=== PATIENT | male | born 1965 | race Caucasian/White ===

== ENCOUNTER 2020-05-29 09:38 | Outpatient (CLI) | payer SELFPAY | END 2020-05-29 23:59 | disposition home or self-care (01) | LOC: LAB 09:38 | PROVIDERS: ATTEND Internal Medicine Hematology & Oncology | DX: D46.9 Myelodysplastic syndrome, unspecified (principal) | CPT/HCPCS: 36415 ==

== ENCOUNTER 2022-01-02 00:43 | Inpatient (IN) | payer OTHER, BC ==
[~2022-01-02] VITALS: Ht 180.3 cm; Wt 90.9 kg
--- NOTE | 2022-01-02 01:08 | NUR ---
blood sent to the lab
--- NOTE | 2022-01-02 01:08 | NUR ---
ekg is being performed
--- NOTE | 2022-01-02 01:09 | NUR ---
patient also given a urinal awaitng urine sample
[2022-01-02 01:14] LABS: BASOPHILS # (AUTO) 0.1 X10'3 (0-0.2); BASOPHILS % (AUTO) 0.7 % (0-1); EOSINOPHILS % (AUTO) 0.3 % (0-6); HEMOGLOBIN 14.2 g/dl (14.0-17.9); LYMPHOCYTES # (AUTO) 1.3 X10'3 (1.1-4.8); LYMPHOCYTES % (AUTO) 11.1 % (21-51); MEAN CORPUSCULAR HEMOGLOBIN 31.4 PG (27.0-31.0); MEAN CORPUSCULAR HGB CONC 34.6 g/dL (33.0-36.5); MEAN CORPUSCULAR VOLUME 90.6 FL (78-98); MEAN PLATELET VOLUME 7.5 FL (7.4-10.4); MONOCYTES # (AUTO) 0.6 X10'3 (0-0.9); MONOCYTES % (AUTO) 5.5 % (2-12); NEUTROPHILS # (AUTO) 9.7 X10'3 (1.8-7.7); NEUTROPHILS % (AUTO) 82.4 % (42-75); PLATELET COUNT 293 X10'3 (140-440); RED BLOOD COUNT 4.52 X10'6 (4.70-6.10); RED CELL DISTRIBUTION WIDTH 13.4 % (11.5-14.5); WHITE BLOOD COUNT 11.7 X10'3 (4.5-11.0)
[2022-01-02] MEDS ORDERED: ondansetron/PF 4mg/2ml inj IV ONE (01:15)
[2022-01-02] MEDS ORDERED: acetaminophen 325mg tablet PO ONE (01:15)
[2022-01-02] MEDS ORDERED: LIDOcaine 5% patch TP ONE (01:15)
[2022-01-02] MEDS ORDERED: normal saline 1000ml 1,000 ML IV ONE ×2 (01:15→01:45)
[2022-01-02] MEDS ORDERED: ketorolac trometh. 30mg/ml inj. IV ONE (01:15)
[2022-01-02 01:37] LABS: ALANINE AMINOTRANSFERASE 51 U/L (12-78); ALBUMIN 3.8 G/DL (3.4-5.0); ALBUMIN/GLOBULIN RATIO 0.9 (1.1-1.5); ALKALINE PHOSPHATASE 301 IU/L (46-116); ANION GAP 10 (8-16); ASPARTATE AMINO TRANSFERASE 98 U/L (10-37); BLOOD UREA NITROGEN 33 MG/DL (7-18); BUN/CREATININE RATIO 29.7 (5.4-32.0); CHLORIDE 96 MMOL/L (99-107); CREATININE 1.11 MG/DL (0.60-1.10); LIPASE 61 U/L (73-393); POTASSIUM 4.4 MMOL/L (3.5-5.1); SODIUM 137 MMOL/L (135-145); TOTAL CARBON DIOXIDE 30.6 MMOL/L (24-32); TOTAL PROTEIN 8.2 G/DL (6.4-8.2); eGFR 68 ML/MIN
[2022-01-02 01:43] LABS: CALCIUM 14.3 MG/DL (8.5-10.1); GLUCOSE 500 MG/DL (70-104)
[2022-01-02] MEDS ORDERED: insulin regular, human 10 units/0.1 ml syringe IV ONE (01:45)
[2022-01-02] MEDS ORDERED: iohexol 300mg/ml 100ml inj. ONE ×2 (02:21→10:29)
[2022-01-02 03:03] LABS: CLARITY,URINE CLEAR (Clear); COLOR,URINE YELLOW (Yellow); GLUCOSE, URINE >=1000 mg/dl (Neg); KETONES,URINE TRACE mg/dl (Neg); LEUKOCYTE ESTERASE ,URINE NEGATIVE (Neg); NITRITES, URINE NEGATIVE (Neg); OCCULT BLOOD,URINE NEGATIVE (Neg); PROTEIN,URINE NEGATIVE (Neg); UROBILINOGEN,URINE 0.2 E.U/dL (0.2-1.0)
[2022-01-02 03:05] LABS: UA COLLECTION TYPE CLN CATCH MIDSTREAM
[2022-01-02 03:10] LABS: BACTERIA,URINE NONE SEEN /HPF (Neg); MUCUS STRANDS FEW /LPF (Neg); RBC,URINE 0-2 /HPF (0-2); SQUAMOUS EPITHELIAL CELL,UR NONE SEEN /LPF (FEW); WBC,URINE 0-4 /HPF (0-4)
[2022-01-02] MEDS ORDERED: ondansetron/PF 4mg/2ml inj IV PRN (05:25)
[2022-01-02] MEDS ORDERED: acetaminophen 325mg tablet PO PRN (05:25)
[2022-01-02] MEDS ORDERED: pamidronate disodium inj 90 MG in normal saline 500ml IV soln 500 ML IV ONE (05:30)
[2022-01-02] MEDS ORDERED: morphine 2 MG/ML inj. syringe IV PRN (05:30)
[2022-01-02] MEDS ORDERED: NORMAL SALINE IV ONE (05:32)
[2022-01-02] MEDS ORDERED: PAMIDRONATE DISODIUM IV ONE (05:32)
[2022-01-02] MEDS: normal saline 1000ml 1,000 ML IV SCH ×4 (05:51→20:57)
[2022-01-02] MEDS ORDERED: furosemide 10 MG/1 ML 10ml inj IV SCH (08:00)
[2022-01-02] MEDS ORDERED: HYDROcodone/acetaminophen 5mg/325mg tablet PO PRN (08:55)
[2022-01-02] MEDS ORDERED: NO HOME MEDS (11:14)
[2022-01-02] MEDS ORDERED: gelatin sponge, absorbable (Gelfoam 12-7MM) sponge TP ONE (14:29)
[2022-01-02 14:50] VITALS: BP 145/92
[2022-01-02 14:57] VITALS: BP 130/74
[2022-01-02 16:00] VITALS: BP 136/85
[2022-01-02] MEDS ORDERED: dextrose 50%-water 50ml dispensing syringe IV PRN ×2 (18:20)
[2022-01-02] MEDS ORDERED: DEXTROSE 15 GM of carb/4 tabs (each vial/BOTTLE has 4 tablets) PO PRN ×2 (18:20)
[2022-01-02] MEDS ORDERED: glucagon, human recombinant 1mg kit SUBCUT PRN (18:20)
[2022-01-02] MEDS ORDERED: MESSAGE TO PHARMACY PO ONE (18:20)
[2022-01-02 20:00] VITALS: BP 146/79
[2022-01-02] MEDS: insulin Lispro (HumaLOG) vial - multi-dose SQ SCH ×2 (20:01→21:45)
--- NOTE | 2022-01-02 20:05 | NUR ---
Spoke with Annemarie Salinas RN patient will be a level 2 and we will cover insulin for nutrition and then recheck at 2100.
[2022-01-02] MEDS ORDERED: insulin glargine (Lantus) pen - multi-dose SQ SCH (21:00)
[2022-01-03] VITALS: BP 140/81
[2022-01-03] MEDS: normal saline 1000ml 1,000 ML IV SCH ×3 (02:12→08:13)
[2022-01-03 06:34] LABS: BASOPHILS % (AUTO) 0.6 % (0-1); EOSINOPHILS # (AUTO) 0.1 X10'3 (0-0.9); HEMATOCRIT 36.8 % (42.0-52.0); HEMOGLOBIN 12.8 g/dl (14.0-17.9); LYMPHOCYTES # (AUTO) 0.4 X10'3 (1.1-4.8); LYMPHOCYTES % (AUTO) 7.3 % (21-51); MEAN CORPUSCULAR HEMOGLOBIN 31.3 PG (27.0-31.0); MEAN CORPUSCULAR HGB CONC 34.8 g/dL (33.0-36.5); MEAN PLATELET VOLUME 7.4 FL (7.4-10.4); MONOCYTES # (AUTO) 0.1 X10'3 (0-0.9); MONOCYTES % (AUTO) 2.4 % (2-12); NEUTROPHILS # (AUTO) 5.3 X10'3 (1.8-7.7); NEUTROPHILS % (AUTO) 88.7 % (42-75); PLATELET COUNT 200 X10'3 (140-440); RED BLOOD COUNT 4.09 X10'6 (4.70-6.10); RED CELL DISTRIBUTION WIDTH 13.5 % (11.5-14.5); WHITE BLOOD COUNT 5.9 X10'3 (4.5-11.0)
[2022-01-03 07:00] VITALS: BP 148/83
[2022-01-03 07:00] LABS: ALANINE AMINOTRANSFERASE 40 U/L (12-78); ALBUMIN 2.7 G/DL (3.4-5.0); ALBUMIN/GLOBULIN RATIO 0.7 (1.1-1.5); ALKALINE PHOSPHATASE 192 IU/L (46-116); ANION GAP 9 (8-16); ASPARTATE AMINO TRANSFERASE 81 U/L (10-37); BILIRUBIN,TOTAL 0.7 MG/DL (0.1-1.0); BLOOD UREA NITROGEN 14 MG/DL (7-18); BUN/CREATININE RATIO 18.2 (5.4-32.0); CALCIUM 10.9 MG/DL (8.5-10.1); CHLORIDE 107 MMOL/L (99-107); CREATININE 0.77 MG/DL (0.60-1.10); GLUCOSE 169 MG/DL (70-104); POTASSIUM 3.4 MMOL/L (3.5-5.1); SODIUM 145 MMOL/L (135-145); TOTAL CARBON DIOXIDE 28.8 MMOL/L (24-32); TOTAL PROTEIN 6.6 G/DL (6.4-8.2); eGFR > 90 ML/MIN
--- NOTE | 2022-01-03 07:25 | NUR ---
Problems reprioritized. Patient report given, questions answered & plan of care reviewed with Elli BERGMAN.
[2022-01-03] MEDS ORDERED: HYDR-3965 PO (09:33)
[2022-01-03] MEDS ORDERED: DOCU-148 PO (09:33)
[2022-01-03] MEDS ORDERED: GLIP1TAB6 PO (10:33)
[2022-01-03 11:20] LABS: HEMOGLOBIN A1C 11.3 % (4.5-6.2)
[2022-01-04 09:54] LABS: CARCINOEMBRYONIC ANTIGEN 2.3 ng/mL (0.0-4.7)
== END 2022-01-03 10:15 | disposition home or self-care (01) | DRG 437 ==
LOC: ER 00:43 → ED HOLD 05:25 → EDBEDREQ 05:44 → SUR 3N 07:51
PROVIDERS: ADMIT Internal Medicine; ATTEND Internal Medicine
PROC: 0FB13ZX Excision of Right Lobe Liver, Percutaneous Approach, Diagnostic (ICD-10-PCS; principal; 2022-01-02)
PROC: BW211ZZ Computerized Tomography (CT Scan) of Abdomen and Pelvis using Low Osmolar Contrast (ICD-10-PCS; 2022-01-02)
DX: C22.9 Malignant neoplasm of liver, not specified as primary or secondary (principal); R63.0 Anorexia; R16.0 Hepatomegaly, not elsewhere classified; E83.52 Hypercalcemia; E11.9 Type 2 diabetes mellitus without complications; Z68.28 Body mass index [BMI] 28.0-28.9, adult
CPT/HCPCS: 36415; 47000; 71045; 71260; 74177; 80053; 81001; 82378; 82948; 83036; 83690; 83880; 84145; 84484; 85025; 85610; 86301; 93005; 99285; G0378; J1815; J1885; J1940; J2270; J2405; J2430; J7030; J7040; Q9967

== ENCOUNTER 2022-01-26 17:18 | Emergency (ER) | payer OTHER, BC ==
[~2022-01-26] VITALS: Ht 180.3 cm; Wt 78.0 kg
[~2022-01-26 17:18] MED LIST: DOCU-148 PO; GLIP1TAB6 PO; HYDR-3965 PO
[2022-01-26 18:50] LABS: ALANINE AMINOTRANSFERASE 38 U/L (12-78); ALBUMIN 3.5 G/DL (3.4-5.0); ALBUMIN/GLOBULIN RATIO 0.8 (1.1-1.5); ALKALINE PHOSPHATASE 265 IU/L (46-116); ANION GAP 11 (8-16); ASPARTATE AMINO TRANSFERASE 112 U/L (10-37); BILIRUBIN,TOTAL 0.6 MG/DL (0.1-1.0); BLOOD UREA NITROGEN 20 MG/DL (7-18); BUN/CREATININE RATIO 22.7 (5.4-32.0); CHLORIDE 104 MMOL/L (99-107); CREATININE 0.88 MG/DL (0.60-1.10); GLUCOSE 103 MG/DL (70-104); POTASSIUM 3.8 MMOL/L (3.5-5.1); SODIUM 141 MMOL/L (135-145); TOTAL PROTEIN 7.7 G/DL (6.4-8.2); eGFR 89 ML/MIN
[2022-01-26 18:58] LABS: CALCIUM 12.7 MG/DL (8.5-10.1)
[2022-01-26 19:43] LABS: BASOPHILS % (AUTO) 0.6 % (0-1); EOSINOPHILS # (AUTO) 0.1 X10'3 (0-0.9); EOSINOPHILS % (AUTO) 0.9 % (0-6); HEMATOCRIT 36.2 % (42.0-52.0); HEMOGLOBIN 12.5 g/dl (14.0-17.9); LYMPHOCYTES # (AUTO) 1.6 X10'3 (1.1-4.8); LYMPHOCYTES % (AUTO) 21.2 % (21-51); MEAN CORPUSCULAR HEMOGLOBIN 30.8 PG (27.0-31.0); MEAN CORPUSCULAR HGB CONC 34.5 g/dL (33.0-36.5); MEAN CORPUSCULAR VOLUME 89.3 FL (78-98); MEAN PLATELET VOLUME 7.4 FL (7.4-10.4); MONOCYTES # (AUTO) 0.5 X10'3 (0-0.9); MONOCYTES % (AUTO) 6.4 % (2-12); NEUTROPHILS # (AUTO) 5.3 X10'3 (1.8-7.7); NEUTROPHILS % (AUTO) 70.9 % (42-75); PLATELET COUNT 292 X10'3 (140-440); RED BLOOD COUNT 4.05 X10'6 (4.70-6.10); RED CELL DISTRIBUTION WIDTH 13.8 % (11.5-14.5); WHITE BLOOD COUNT 7.4 X10'3 (4.5-11.0)
[2022-01-26] MEDS ORDERED: normal saline 1000ml 1,000 ML IV ONE ×2 (20:10→22:25)
[2022-01-26] MEDS ORDERED: pamidronate disodium inj 60 MG in normal saline 500ml IV soln 500 ML IV ONE (21:25)
[2022-01-26] MEDS ORDERED: NORMAL SALINE IV ONE (21:25)
[2022-01-26] MEDS ORDERED: PAMIDRONATE DISODIUM IV ONE (21:25)
[2022-01-27] MEDS ORDERED: furosemide 10 MG/1 ML 10ml inj IV ONE (01:50)
[2022-01-27 02:17] LABS: ALBUMIN 3.1 G/DL (3.4-5.0); BLOOD UREA NITROGEN 16 MG/DL (7-18); CALCIUM 11.5 MG/DL (8.5-10.1); GLUCOSE 160 MG/DL (70-104); eGFR > 90 ML/MIN
[2022-01-27 02:27] VITALS: BP 133/84
[2022-01-27 02:36] LABS: ANION GAP 6 (8-16); CHLORIDE 105 MMOL/L (99-107); POTASSIUM 3.4 MMOL/L (3.5-5.1); SODIUM 135 MMOL/L (135-145); TOTAL CARBON DIOXIDE 23.7 MMOL/L (24-32)
== END 2022-01-27 03:37 | disposition home or self-care (01) ==
LOC: ER 17:19
DX: E83.52 Hypercalcemia (principal); E11.9 Type 2 diabetes mellitus without complications; Z85.05 Personal history of malignant neoplasm of liver; Z79.899 Other long term (current) drug therapy
CPT/HCPCS: 36415; 71045; 80048; 80053; 85025; 93005; 96361; 96365; 96375; 99285; J1940; J2430; J7030; J7040; 96374

== ENCOUNTER 2023-04-25 08:13 | Day surgery (SDC) | payer OTHER, BC ==
[~2023-04-25] VITALS: Ht 180.3 cm; Wt 76.5 kg
[2023-04-25] VITALS (12 sets, daily range): BP systolic 94–124; BP diastolic 59–75
[~2023-04-25 08:13] MED LIST changes: +ASPI-771 PO; +BACI1TAB25; -DOCU-148 PO; +FOLI0.4T6 PO; -HYDR-3965 PO; +MAGN500C17 PO; +METO1TAB12 PO; +ONDA8TAB13 PO; +POLY119P2 PO; +PROC10TA10 PO; +[UNRECOGNIZED DRUG - CODE]; +[UNRECOGNIZED DRUG - CODE] PO
[2023-04-25] MEDS ORDERED: albumin 25% 100mL bottle x 1 IV PRN (08:35)
[2023-04-25] MEDS ORDERED: dextrose 50%-water 50ml dispensing syringe IV ONE ×2 (09:15→11:25)
--- NOTE | 2023-04-25 09:15 | NUR ---
Lakhwinder HESS notified of glucose 42, checked twice. per DESHAWN Warren give D50. Addendum: 04/25/23 at 1730 by Ekta Rae RN pt is alert and oriented, asymptomatic
--- NOTE | 2023-04-25 11:11 | NUR ---
DESHAWN Warren notified glucose 77 per DESHAWN Warren give D50 again, pt has been eating food and drinks, carbohydrates.
== END 2023-04-25 15:05 | disposition home or self-care (01) ==
LOC: SSTAY O 08:13
PROVIDERS: ATTEND Radiology Vascular & Interventional Radiology
DX: R18.8 Other ascites (principal); D70.1 Agranulocytosis secondary to cancer chemotherapy; T45.1X5A Adverse effect of antineoplastic and immunosuppressive drugs, initial encounter; C22.1 Intrahepatic bile duct carcinoma; E83.52 Hypercalcemia; E11.9 Type 2 diabetes mellitus without complications; K74.60 Unspecified cirrhosis of liver; Y92.89 Other specified places as the place of occurrence of the external cause; Z79.84 Long term (current) use of oral hypoglycemic drugs; Z79.899 Other long term (current) drug therapy
CPT/HCPCS: 36415; 49083; 82947; 82948; C1729; J3490; P9047; A6258

== ENCOUNTER 2023-05-08 07:24 | Day surgery (SDC) | payer OTHER, BC ==
[~2023-05-08] VITALS: Ht 180.3 cm; Wt 74.2 kg
[2023-05-08] VITALS (8 sets, daily range): BP systolic 108–132; BP diastolic 54–76; PULSE 60–69; RESP 12–18; TEMP 98.1; O2SAT 98–100
[2023-05-08] MEDS ORDERED: albumin 25% 100mL bottle x 1 IV PRN (07:40)
== END 2023-05-08 11:00 | disposition home or self-care (01) ==
LOC: SSTAY O 07:24
PROVIDERS: ATTEND Radiology Vascular & Interventional Radiology
DX: R18.8 Other ascites (principal); R14.0 Abdominal distension (gaseous); D70.1 Agranulocytosis secondary to cancer chemotherapy; C22.1 Intrahepatic bile duct carcinoma; E83.52 Hypercalcemia; Z79.899 Other long term (current) drug therapy
CPT/HCPCS: 49083; 82948; C1729; J3490; P9047; A6258; A6449

== ENCOUNTER 2023-05-22 07:57 | Day surgery (SDC) | payer OTHER, BC ==
[2023-05-22] VITALS (7 sets, daily range): BP systolic 107–122; BP diastolic 71–85; PULSE 76–104; RESP 15–16; TEMP 98.1; O2SAT 97–99
[~2023-05-22] VITALS: Ht 180.3 cm; Wt 68.5 kg
[~2023-05-22 07:57] MED LIST changes: -GLIP1TAB6 PO; -PROC10TA10 PO; +PROC10TA97 PO
[2023-05-22] MEDS ORDERED: PENI-88 PO (08:15)
[2023-05-22] MEDS ORDERED: PANT40TA54 PO (08:15)
[2023-05-22] MEDS ORDERED: albumin 25% 100mL bottle x 1 IV PRN (08:25)
== END 2023-05-22 11:55 | disposition home or self-care (01) ==
LOC: SSTAY O 07:57
PROVIDERS: ATTEND Radiology Diagnostic Radiology
DX: R18.8 Other ascites (principal); R14.0 Abdominal distension (gaseous); E83.52 Hypercalcemia; K74.60 Unspecified cirrhosis of liver; C22.1 Intrahepatic bile duct carcinoma; D70.1 Agranulocytosis secondary to cancer chemotherapy; T45.1X5A Adverse effect of antineoplastic and immunosuppressive drugs, initial encounter; Z79.899 Other long term (current) drug therapy; Z79.82 Long term (current) use of aspirin; Y92.89 Other specified places as the place of occurrence of the external cause
CPT/HCPCS: 49083; 82948; C1729; J3490; P9047; A6258; A6449

== ENCOUNTER 2023-06-06 07:46 | Day surgery (SDC) | payer OTHER, BC ==
[2023-06-06] VITALS (9 sets, daily range): BP systolic 85–108; BP diastolic 51–73; PULSE 60–75; RESP 12–16; TEMP 97.5; O2SAT 97–100
[~2023-06-06] VITALS: Ht 180.3 cm; Wt 70.5 kg
[~2023-06-06 07:46] MED LIST changes: +PANT40TA54 PO; +PENI-88 PO
[2023-06-06] MEDS: albumin 25% 100mL bottle x 1 IV PRN ×2 (09:12→10:37)
[2023-06-06] MEDS ORDERED: normal saline 1000ml 1,000 ML IV ONE (09:35)
== END 2023-06-06 11:47 | disposition home or self-care (01) ==
LOC: SSTAY O 07:46
PROVIDERS: ATTEND Radiology Vascular & Interventional Radiology
DX: R18.8 Other ascites (principal); R14.0 Abdominal distension (gaseous); D70.1 Agranulocytosis secondary to cancer chemotherapy; C22.1 Intrahepatic bile duct carcinoma; E83.52 Hypercalcemia; K74.60 Unspecified cirrhosis of liver; Z98.890 Other specified postprocedural states; Z79.899 Other long term (current) drug therapy
CPT/HCPCS: 49083; 82948; C1729; J3490; J7030; P9047; A6258

== ENCOUNTER 2023-06-27 07:18 | Day surgery (SDC) | payer OTHER, BC ==
[~2023-06-27] VITALS: Ht 180.3 cm; Wt 76.2 kg
[2023-06-27] VITALS (9 sets, daily range): BP systolic 90–130; BP diastolic 49–70; PULSE 61–71; RESP 12–15; TEMP 99.4; O2SAT 98–99
[~2023-06-27 07:18] MED LIST changes: -PENI-88 PO
[2023-06-27] MEDS: albumin 25% 100mL bottle x 1 IV PRN ×2 (09:42→10:21)
== END 2023-06-27 11:12 | disposition home or self-care (01) ==
LOC: SSTAY O 07:18
PROVIDERS: ATTEND Radiology Vascular & Interventional Radiology
DX: R18.8 Other ascites (principal); R14.0 Abdominal distension (gaseous); D70.1 Agranulocytosis secondary to cancer chemotherapy; T45.1X5A Adverse effect of antineoplastic and immunosuppressive drugs, initial encounter; C22.1 Intrahepatic bile duct carcinoma; E83.52 Hypercalcemia; Z79.82 Long term (current) use of aspirin; Z79.899 Other long term (current) drug therapy; Z98.890 Other specified postprocedural states; Y92.89 Other specified places as the place of occurrence of the external cause
CPT/HCPCS: 49083; C1729; J3490; P9047; A6258; A6449

== ENCOUNTER 2023-07-25 07:16 | Day surgery (SDC) | payer OTHER, BC ==
[~2023-07-25] VITALS: Ht 180.3 cm; Wt 72.1 kg
[2023-07-25] VITALS (8 sets, daily range): BP systolic 98–136; BP diastolic 66–83; PULSE 69–86; RESP 16; TEMP 97.6; O2SAT 92–100
[2023-07-25] MEDS ORDERED: albumin 25% 100mL bottle x 1 IV PRN (07:50)
[2023-07-25] MEDS ORDERED: normal saline 1000ml 1,000 ML IV PRN (07:50)
== END 2023-07-25 10:40 | disposition home or self-care (01) ==
LOC: SSTAY O 07:16
PROVIDERS: ATTEND Radiology Vascular & Interventional Radiology
DX: R18.8 Other ascites (principal); D70.1 Agranulocytosis secondary to cancer chemotherapy; T45.1X5A Adverse effect of antineoplastic and immunosuppressive drugs, initial encounter; C22.1 Intrahepatic bile duct carcinoma; E83.52 Hypercalcemia; Z98.890 Other specified postprocedural states; Z79.899 Other long term (current) drug therapy; Z83.3 Family history of diabetes mellitus; Y92.89 Other specified places as the place of occurrence of the external cause
CPT/HCPCS: 49083; C1729; J3490; J7030; P9047; A6258; A6449

== ENCOUNTER 2023-08-07 06:51 | Day surgery (SDC) | payer OTHER, BC ==
[~2023-08-07] VITALS: Ht 180.3 cm; Wt 71.9 kg
[2023-08-07 07:05] VITALS: BP 111/74; PULSE 71; RESP 15; TEMP 98; O2SAT 15
[2023-08-07] MEDS ORDERED: albumin 25% 100mL bottle x 1 IV PRN (07:15)
[2023-08-07 08:00] VITALS: RESP 15; O2SAT 95
[2023-08-07 08:52] VITALS: BP 110/80; PULSE 62; RESP 15; O2SAT 98
[2023-08-07 09:07] VITALS: BP 107/70; PULSE 67; RESP 16; O2SAT 97
[2023-08-07 09:22] VITALS: BP 101/53; PULSE 70; RESP 14; O2SAT 96
[2023-08-07 09:37] VITALS: BP 109/66; PULSE 74; RESP 15; O2SAT 100
== END 2023-08-07 10:00 | disposition home or self-care (01) ==
LOC: SSTAY O 06:51
PROVIDERS: ATTEND Radiology Diagnostic Radiology
DX: R18.8 Other ascites (principal)
CPT/HCPCS: 49083; C1729; P9047; A6258; A6449

== ENCOUNTER 2023-08-21 06:27 | Day surgery (SDC) | payer OTHER, BC ==
[~2023-08-21] VITALS: Ht 180.3 cm; Wt 70.4 kg
[~2023-08-21 06:27] MED LIST changes: -POLY119P2 PO
[2023-08-21 06:59] VITALS: BP 124/68; PULSE 65; RESP 16; TEMP 98.1; O2SAT 100
[2023-08-21] MEDS ORDERED: albumin 25% 100mL bottle x 1 IV PRN (07:00)
[2023-08-21 09:10] VITALS: BP 107/72; PULSE 73; RESP 15; O2SAT 99
[2023-08-21 09:25] VITALS: BP 103/61; PULSE 67; RESP 16; O2SAT 100
[2023-08-21 09:40] VITALS: BP 102/64; PULSE 71; RESP 15; O2SAT 99
[2023-08-21 09:55] VITALS: BP 98/59; PULSE 72; RESP 16; O2SAT 100
== END 2023-08-21 10:07 | disposition home or self-care (01) ==
LOC: SSTAY O 06:27
PROVIDERS: ATTEND Radiology Vascular & Interventional Radiology
DX: R18.8 Other ascites (principal); R14.0 Abdominal distension (gaseous); D70.1 Agranulocytosis secondary to cancer chemotherapy; T45.1X5A Adverse effect of antineoplastic and immunosuppressive drugs, initial encounter; C22.1 Intrahepatic bile duct carcinoma; E83.52 Hypercalcemia; K74.60 Unspecified cirrhosis of liver; Z79.899 Other long term (current) drug therapy; Z79.82 Long term (current) use of aspirin; Z98.890 Other specified postprocedural states; Z83.3 Family history of diabetes mellitus; Y92.89 Other specified places as the place of occurrence of the external cause
CPT/HCPCS: 49083; C1729; P9047; A6258; A6449

== ENCOUNTER 2023-09-03 08:04 | Day surgery (SDC) | payer OTHER, BC ==
[2023-09-03] VITALS (8 sets, daily range): BP systolic 85–99; BP diastolic 54–67; PULSE 52–62; RESP 12–14; TEMP 97.8; O2SAT 100
[~2023-09-03] VITALS: Ht 180.3 cm; Wt 70.3 kg
[2023-09-03] MEDS ORDERED: albumin 25% 100mL bottle x 1 IV PRN (10:35)
== END 2023-09-03 11:22 | disposition home or self-care (01) ==
LOC: SSTAY O 08:04
PROVIDERS: ATTEND Radiology Vascular & Interventional Radiology
DX: R18.8 Other ascites (principal); R14.0 Abdominal distension (gaseous); D70.1 Agranulocytosis secondary to cancer chemotherapy; T45.1X5A Adverse effect of antineoplastic and immunosuppressive drugs, initial encounter; C22.1 Intrahepatic bile duct carcinoma; E83.52 Hypercalcemia; K74.60 Unspecified cirrhosis of liver; Z79.899 Other long term (current) drug therapy; Z79.82 Long term (current) use of aspirin; Z98.890 Other specified postprocedural states; Z83.3 Family history of diabetes mellitus; Y92.89 Other specified places as the place of occurrence of the external cause
CPT/HCPCS: 49083; C1729; P9047; A6258; A6449

== ENCOUNTER 2023-09-18 08:39 | Day surgery (SDC) | payer OTHER, BC ==
[~2023-09-18] VITALS: Ht 180.3 cm; Wt 71.9 kg
[2023-09-18] VITALS (7 sets, daily range): BP systolic 87–111; BP diastolic 54–82; PULSE 18–65; RESP 16–20; TEMP 97.7; O2SAT 97–100
[2023-09-18] MEDS ORDERED: albumin 25% 100mL bottle x 1 IV PRN (08:55)
== END 2023-09-18 11:05 | disposition home or self-care (01) ==
LOC: SSTAY O 08:39
PROVIDERS: ATTEND Radiology Vascular & Interventional Radiology
DX: R18.8 Other ascites (principal); R14.0 Abdominal distension (gaseous); D70.1 Agranulocytosis secondary to cancer chemotherapy; T45.1X5A Adverse effect of antineoplastic and immunosuppressive drugs, initial encounter; C22.1 Intrahepatic bile duct carcinoma; E83.52 Hypercalcemia; K74.60 Unspecified cirrhosis of liver; Z98.890 Other specified postprocedural states; Z79.899 Other long term (current) drug therapy; Z83.3 Family history of diabetes mellitus; Y92.89 Other specified places as the place of occurrence of the external cause
CPT/HCPCS: 49083; C1729; P9047; A6258; A6449

== ENCOUNTER 2023-10-02 06:50 | Day surgery (SDC) | payer OTHER, BC ==
[~2023-10-02] VITALS: Ht 180.3 cm; Wt 69.3 kg
[2023-10-02] MEDS ORDERED: albumin 25% 100mL bottle x 1 IV PRN (07:05)
[2023-10-02 07:18] VITALS: BP 127/82; PULSE 65; RESP 15; TEMP 97.9; O2SAT 96
[2023-10-02 07:30] VITALS: RESP 15; O2SAT 96
[2023-10-02 08:50] VITALS: BP 125/73; PULSE 64; RESP 15; O2SAT 100
[2023-10-02 09:05] VITALS: BP 118/68; PULSE 57; RESP 14; O2SAT 100
[2023-10-02 09:20] VITALS: BP 111/65; PULSE 56; RESP 16; O2SAT 100
[2023-10-02 09:21] VITALS: BP 107/69; PULSE 66; RESP 14; O2SAT 100
== END 2023-10-02 09:55 | disposition home or self-care (01) ==
LOC: SSTAY O 06:50
PROVIDERS: ATTEND Radiology Vascular & Interventional Radiology
DX: R18.8 Other ascites (principal); R14.0 Abdominal distension (gaseous); D70.1 Agranulocytosis secondary to cancer chemotherapy; T38.6X5A Adverse effect of antigonadotrophins, antiestrogens, antiandrogens, not elsewhere classified, initial encounter; C22.1 Intrahepatic bile duct carcinoma; E83.52 Hypercalcemia; Z98.890 Other specified postprocedural states; Z79.899 Other long term (current) drug therapy; Y92.89 Other specified places as the place of occurrence of the external cause
CPT/HCPCS: 49083; C1729; P9047; A6258; A6449

== ENCOUNTER 2023-10-16 07:54 | Day surgery (SDC) | payer OTHER, BC ==
[~2023-10-16] VITALS: Ht 180.3 cm; Wt 68.0 kg
[2023-10-16] VITALS (7 sets, daily range): BP systolic 94–112; BP diastolic 59–75; PULSE 67–72; RESP 16; TEMP 97.9; O2SAT 99–100
[2023-10-16] MEDS ORDERED: albumin 25% 100mL bottle x 1 IV PRN (08:25)
[2023-10-16] MEDS ORDERED: normal saline 1000ml 1,000 ML IV PRN (08:25)
== END 2023-10-16 15:31 | disposition home or self-care (01) ==
LOC: SSTAY O 07:54
PROVIDERS: ATTEND Radiology Vascular & Interventional Radiology
DX: R18.8 Other ascites (principal); R14.0 Abdominal distension (gaseous); D70.1 Agranulocytosis secondary to cancer chemotherapy; T45.1X5A Adverse effect of antineoplastic and immunosuppressive drugs, initial encounter; C22.1 Intrahepatic bile duct carcinoma; E83.52 Hypercalcemia; Z98.890 Other specified postprocedural states; Z79.899 Other long term (current) drug therapy; Z83.3 Family history of diabetes mellitus; Y92.89 Other specified places as the place of occurrence of the external cause
CPT/HCPCS: 49083; 82948; C1729; P9047; A6258; A6449

== ENCOUNTER 2023-10-30 08:29 | Day surgery (SDC) | payer OTHER, BC ==
[~2023-10-30] VITALS: Ht 180.3 cm; Wt 70.2 kg
[2023-10-30 08:45] VITALS: BP 113/66; PULSE 60; RESP 16; TEMP 98.2; O2SAT 100
[2023-10-30] MEDS ORDERED: albumin 25% 100mL bottle x 1 IV PRN (08:45)
[2023-10-30 09:35] VITALS: BP 99/62; PULSE 66; RESP 16; O2SAT 100
[2023-10-30 09:45] VITALS: BP 99/61; PULSE 60; RESP 16; O2SAT 100
[2023-10-30 09:53] VITALS: BP 99/61; PULSE 60; RESP 16; O2SAT 100
[2023-10-30 10:00] VITALS: BP 99/61; PULSE 58; RESP 16; O2SAT 100
[2023-10-30 10:15] VITALS: BP 100/67; PULSE 62; RESP 16; O2SAT 100
== END 2023-10-30 10:35 | disposition home or self-care (01) ==
LOC: SSTAY O 08:29
PROVIDERS: ATTEND Radiology Vascular & Interventional Radiology
DX: R18.8 Other ascites (principal); R14.0 Abdominal distension (gaseous); E83.52 Hypercalcemia; D70.1 Agranulocytosis secondary to cancer chemotherapy; T45.1X5A Adverse effect of antineoplastic and immunosuppressive drugs, initial encounter; C22.1 Intrahepatic bile duct carcinoma; Z98.890 Other specified postprocedural states; Z79.899 Other long term (current) drug therapy; Y92.89 Other specified places as the place of occurrence of the external cause
CPT/HCPCS: 49083; C1729; A6258; A6449

== ENCOUNTER 2023-11-20 07:22 | Day surgery (SDC) | payer OTHER, MEDICAID ==
[~2023-11-20] VITALS: Ht 180.3 cm; Wt 70.2 kg
[2023-11-20] MEDS ORDERED: albumin 25% 100mL bottle x 1 IV PRN (07:50)
[2023-11-20 08:15] VITALS: BP 95/59; PULSE 63; RESP 16; TEMP 98.4; O2SAT 100
[2023-11-20 08:46] VITALS: BP 184/88; PULSE 101; RESP 16; TEMP 97.4; O2SAT 100
[2023-11-20 09:40] VITALS: BP 134/71; PULSE 69; RESP 16; O2SAT 100
[2023-11-20 09:55] VITALS: BP 96/71; PULSE 62; RESP 16; O2SAT 100
[2023-11-20 14:01] VITALS: BP 101/58; PULSE 58; RESP 16; O2SAT 100
== END 2023-11-20 10:20 | disposition home or self-care (01) ==
LOC: SSTAY O 07:22
PROVIDERS: ATTEND Radiology Vascular & Interventional Radiology
DX: R18.8 Other ascites (principal); R14.0 Abdominal distension (gaseous); Z79.82 Long term (current) use of aspirin; Z79.899 Other long term (current) drug therapy; Z83.3 Family history of diabetes mellitus
CPT/HCPCS: 49083; C1729; A6258

== ENCOUNTER 2023-12-09 07:47 | Day surgery (SDC) | payer OTHER, MEDICAID ==
[~2023-12-09] VITALS: Ht 154.9 cm; Wt 72.6 kg
[2023-12-09] MEDS ORDERED: albumin 25% 100mL bottle x 1 IV PRN (08:10)
[2023-12-09 08:19] VITALS: BP 114/66; PULSE 53; RESP 16; TEMP 99; O2SAT 100
[2023-12-09 08:22] VITALS: RESP 16; O2SAT 100
[2023-12-09 09:40] VITALS: BP 99/62; PULSE 58; RESP 16; O2SAT 99
[2023-12-09 09:55] VITALS: BP 106/62; PULSE 59; RESP 16; O2SAT 100
[2023-12-09 10:10] VITALS: BP 102/60; PULSE 59; RESP 16; O2SAT 100
== END 2023-12-09 10:15 | disposition home or self-care (01) ==
LOC: SSTAY O 07:47
PROVIDERS: ATTEND Radiology Diagnostic Radiology
DX: R18.8 Other ascites (principal); R14.0 Abdominal distension (gaseous)
CPT/HCPCS: 49083; C1729; A6258